=== PATIENT | female | born 1960 | race African-American/Black ===

== ENCOUNTER 2016-12-01 08:21 | Inpatient (IN) | payer SELFPAY ==
[2016-12-01] VITALS (7 sets, daily range): BP systolic 104–117; BP diastolic 60–70; PULSE 70
[~2016-12-01] VITALS: Ht 152.4 cm; Wt 54.8 kg
[~2016-12-01 08:21] MED LIST: ACET50TAOT PO; AMLO10TA PO; AMLO10TA2 PO; AMLO5TAB2 PO; ASPI325T PO; ATOR1TAB18 PO; CLON-412 PO; CLONI1TA PO; CLOP75TA2 PO; LIPI20TA PO; LOPR1TAB6 PO; LOSA100T37 PO; METO25TAB PO; PERC5TAB6 PO; TYLE325T5 PO
[2016-12-01] MEDS ORDERED: PANTOPRAZOLE 40MG INJ (PROTONIX) (C9113) As Ordered ONE (09:03)
[2016-12-01] MEDS ORDERED: ONDANSETRON 4MG/2ML VIAL (J2405) As Ordered ONE (09:04)
[2016-12-01 09:12] LABS: BASO % 0.5 % (0.0-1.0); EOS # 0.2 K/mm3 (0.0-0.50); EOS % 1.8 % (0.0-3.0); LARGE UNSTAINED CELL # 0.2 K/mm3 (0.0-0.4); LARGE UNSTAINED CELL % 1.5 % (0.0-4.0); LYMPH # 2.1 K/mm3 (1.5-4.5); LYMPH % 19.3 % (24.0-44.0); MEAN CORPUSCULAR HEMOGLOBIN 25.8 pg (27.0-33.0); MEAN CORPUSCULAR HGB CONC 31.3 g/dl (32.0-36.5); MEAN CORPUSCULAR VOLUME 82.3 fl (80.0-96.0); MONO # 0.4 K/mm3 (0.0-0.8); MONO % 3.5 % (0.0-5.0); NEUTROPHILS # 7.8 K/mm3 (1.8-7.7); NEUTROPHILS % 73.4 % (36.0-66.0); PLATELET COUNT, AUTOMATED 213 k/mm3 (150-450); RED CELL DISTRIBUTION WIDTH 13.3 % (11.5-14.5); WHITE BLOOD COUNT 10.7 K/mm3 (4.0-10.0)
[2016-12-01] MEDS ORDERED: LOSA100T37 PO (09:27)
[2016-12-01] MEDS ORDERED: ELIQ5TAB PO (09:27)
[2016-12-01 09:30] LABS: ALBUMIN 3.4 GM/DL (3.2-5.2); ALBUMIN/GLOBULIN RATIO 0.83 (1.00-1.93); ALKALINE PHOSPHATASE 111 U/L (45-117); ALT/SGPT 28 U/L (12-78); AMYLASE 99 U/L (25-115); ANION GAP 12 MEQ/L (8-16); AST/SGOT 28 U/L (15-37); BILIRUBIN,DIRECT < 0.1 MG/DL (0.0-0.2); BILIRUBIN,TOTAL 0.2 MG/DL (0.2-1.0); BLOOD UREA NITROGEN 63 MG/DL (7-18); CALCIUM LEVEL 8.6 MG/DL (8.5-10.1); CARBON DIOXIDE LEVEL 25 MEQ/L (21-32); CHLORIDE LEVEL 110 MEQ/L (98-107); CREATININE FOR GFR 1.94 MG/DL (0.55-1.02); GLOMERULAR FILTRATION RATE 34.6 (>51); GLUCOSE, FASTING 93 MG/DL (70-105); POTASSIUM SERUM 4.5 MEQ/L (3.5-5.1); SODIUM LEVEL 147 MEQ/L (136-145); TOTAL PROTEIN 7.5 GM/DL (6.4-8.2)
[2016-12-01 09:37] LABS: INR 1.41
[2016-12-01] MEDS ORDERED: SUCRALFATE 1 GM TAB As Ordered ONE (10:27)
[2016-12-01] MEDS: NS 1,000 ML IV SCH ×2 (11:19→14:51)
--- NOTE | 2016-12-01 12:20 | EDDOCDS ---
Physician Documentation [facility] Name: Jose Hamm Age: 56 yrs Sex: Female : 1960 Arrival Date: 12/01/2016 Time: 08:21 Bed 15 Private MD: Clive Casarez MD Disposition: 12/01/16 10:27 Hospitalization ordered by Miguel Wahl for Inpatient Admission. Preliminary diagnosis is Hematemesis. - Bed requested for PCU. - Status is Inpatient Admission. js13 - Condition is Stable. - Problem is new. - Symptoms have improved. Historical: - Allergies: no known allergies; - Home Meds: 1. atorvastatin 80 mg oral tab 1 tab once daily 2. losartan-hydrochlorothiazide 100-25 mg oral tab 1 tab once daily 3. Eliquis 5 mg oral tab 1 tab 2 times per day 4. metoprolol tartrate 25 mg Oral tab 2 times per day - PMHx: Hypercholesterolemia; Hypertension; kidney failure stage 3; Stroke; water on the brain; a fib; - PSHx: Cholecystectomy; - Social history: Smoking status: Patient states former smoker of tobacco. No barriers to communication noted, The patient speaks fluent Mosotho, Speaks appropriately for age. - Family history: Not pertinent. - : The pt / caregiver states he / she is on anticoagulants: Eliquis Home medication list is obtained from the patient. - Exposure Risk Screening:: None identified. 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 (152.40 cm) (R); 09:01 BP 120 / 81 (auto/); 13 09:01 Pulse 100 MON; Resp 16; Pulse Ox 100% on R/A; 13 09:16 BP 126 / 80 (auto/); 13 09:16 Pulse 90 MON; Resp 16; Pulse Ox 99% on R/A; 13 09:31 BP 117 / 79 (auto/); 13 09:31 Pulse 84 MON; Resp 16; Pulse Ox 100% on R/A; 13 09:46 BP 117 / 79 (auto/); js13 09:46 Pulse 72 MON; Resp 16; Pulse Ox 99% on R/A; js13 10:01 BP 130 / 87 (auto/); js13 10:01 Pulse 82 MON; Resp 16; Pulse Ox 99% on R/A; js13 10:16 BP 131 / 88 (auto/); js13 10:16 Pulse 76 MON; Resp 16; Pulse Ox 99% on R/A; js13 10:31 BP 124 / 90 (auto/); js13 10:31 Pulse 86 MON; Resp 16; Pulse Ox 98% on R/A; js13 10:46 BP 123 / 84 (auto/); js13 10:46 Pulse 78 MON; Resp 16; Pulse Ox 98% on R/A; js13 11:01 BP 126 / 85 (auto/); js13 11:01 Pulse 68 MON; Resp 16; Pulse Ox 99% on R/A; js13 11:16 BP 134 / 94 (auto/); js13 11:16 Pulse 78 MON; Resp 16; Pulse Ox 98% on R/A; js13 11:31 BP 120 / 87 (auto/); js13 11:31 Pulse 76 MON; Resp 16; Pulse Ox 99% on R/A; js13 11:46 BP 117 / 83 (auto/); js13 11:46 Pulse 84 MON; Resp 16; Temp 97.2(O); Pulse Ox 98% on R/A; js13 12:01 BP 119 / 81 (auto/); js13 12:01 Pulse 90 MON; Resp 16; Temp 97.2(O); Pulse Ox 99% on R/A; 13 08:29 Body Mass Index 21.48 (49.90 kg, 152.40 cm) srm MDM: 08:48 Undress patient appropriately for examination ordered. sd1 08:48 NS 0.9% 1000 ml IV at 250 mL/hr continuous ordered. sd1 08:49 pantoprazole 40 mg IV at bolus once ordered. sd1 08:49 Ondansetron 4 mg IVP once ordered. sd1 08:49 Type & Screen Ordered. EDMS 08:49 Amylase Ordered. EDMS 08:49 Basic Metabolic Profile Ordered. EDMS 08:49 CBC with Diff Ordered. EDMS 08:49 Lipase Ordered. EDMS 08:50 Liver Profile Ordered. EDMS 08:50 Prothrombin Time Profile\E\INR Ordered. EDMS 08:50 NOTHING BY MOUTH+DIET ordered. EDMS 08:50 ECG WITH READING ER PHYS+CARDIAG ordered. EDMS 08:52 pantoprazole 8 mg/hr IV at 10 mL/hr continuous over 72 hrs; 40mg (10mL): withdraw 10mL sd1 from 50mL bag of NS then add protonix ordered. 08:53 BED REQUEST+ADM ordered. EDMS 09:00 Financial registration complete. lg 09:05 [facility] Payment Agreement was scanned into [employer] and attached to record. lg 09:29 CBC with Diff Reviewed. sd1 09:41 Basic Metabolic Profile Reviewed. sd1 09:41 Liver Profile Reviewed. sd1 09:41 Prothrombin Time Profile\E\INR Reviewed. sd1 09:41 Amylase Reviewed. sd1 09:41 Lipase Reviewed. sd1 09:55 Type & Screen Reviewed. sd1 10:09 Sucralfate 1 grams PO once ordered. sd1 11:25 Admission / Observation Status ordered. EDMS 11:25 COMPLETE BLOOD COUNT Ordered. EDMS 11:26 COMPLETE BLOOD COUNT Ordered. EDMS 11:26 BASIC METABOLIC PROFILE Ordered. EDMS 11:53 NPO DIET ordered. EDMS Administered Medications: 09:20 Drug: NS 0.9% 1000 ml [sodium chloride 0.9 % intravenous solution] Route: IV; Rate: 250 js13 mL/hr; Site: left antecubital; 11:46 Follow up: Rate change 125 mL/hr; Rate change per admission orders. js13 12:07 Follow up: IV Status: Infusion continued upon admit js13 09:20 Drug: Ondansetron 4 mg [ondansetron HCl 2 mg/mL intravenous solution (2 mL)] Route: js13 IVP; Site: left antecubital; 09:23 Drug: pantoprazole 8 mg/hr [pantoprazole 40 mg intravenous solution] Route: IV; Rate: js13 10 mL/hr; Infused Over: 72 hrs; Site: left antecubital; 12:07 Follow up: IV Status: Infusion continued upon admit js13 09:24 Drug: pantoprazole 40 mg [pantoprazole 40 mg intravenous solution] Route: IV; Rate: js13 bolus; Site: left antecubital; 10:20 Drug: Sucralfate 1 grams [sucralfate 1 gram tablet (1 tabs)] Route: PO; js13 Signatures: Dispatcher [employer] EDMS Melodie Schwab MD MD sd1 Lamar Bowers, SHER RN Nestor Mendoza, Mars Reg lg Olya Lewis RN RN js13 Terry Mahmood RN RN sa The chart was reviewed and I authenticate all verbal orders and agree with the evaluation and treatment provided.Corrections: (The following items were deleted from the chart) 09:01 08:48 Misc. Nursing Order ordered. sd1 js13 10:42 08:48 Orthostatic VS ordered. md1 js13 11:29 11:25 TYPE & SCREEN ordered. EDMS EDMS 11:53 11:25 NPO DIET ordered. EDMS EDMS Attachments: 09:05 [facility] Payment Agreement lg MTDD
--- NOTE | 2016-12-01 12:20 | EDDOCDS ---
Nurse's Notes [facility] Name: Jose Hamm Age: 56 yrs Sex: Female : 1960 Arrival Date: 12/01/2016 Time: 08:21 Bed 15 Private MD: Clive Casarez MD Diagnosis: Hematemesis Presentation: 12/01 08:25 Presenting complaint: Patient states: started vomiting at 0345. reddish black in color- srm daughter states it looked like jello. no ABD pain or diarrhea. after vomiting she felt tired but " relieved". vomiting about 5-6 times this am. Adult Sepsis Screening: The patient does not have new or worsening altered mentation. Patient's respiratory rate is less than 22. Systolic blood pressure is greater than 100. Patient has a qSOFA score of 0- Negative Sepsis Screen. Transition of care: patient was not received from another setting of care. 08:25 Acuity: ERIC Level 3 srm 08:25 Method Of Arrival: Walkin/Carried/Asstd [facility] 08:29 Suicide/Homicide risk assessment- the patient denies having any suicidal and/or srm homicidal ideations and does not present with any other emotional, behavioral or mental health complaints. Status: The patient is a dependent. Triage Assessment: 08:29 General: Appears in no apparent distress, Behavior is appropriate for age, cooperative. srm Pain: Denies pain. HIV screening NA for this visit Offered previously. 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 atorvastatin 80 mg oral tab 1 tab once daily 2. losartan-hydrochlorothiazide 100-25 mg oral tab 1 tab once daily 3. Eliquis 5 mg oral tab 1 tab 2 times per day 4. metoprolol tartrate 25 mg Oral tab 2 times per day - PMHx: Hypercholesterolemia; Hypertension; kidney failure stage 3; Stroke; water on the brain; a fib; - PSHx: Cholecystectomy; - Social history: Smoking status: Patient states former smoker of tobacco. No barriers to communication noted, The patient speaks fluent Rwandan, Speaks appropriately for age. - Family history: Not pertinent. - : The pt / caregiver states he / she is on anticoagulants: Eliquis Home medication list is obtained from the patient. - Exposure Risk Screening:: None identified. Screenin:43 Screening information is obtained from the patient. Fall risk: No risks identified. js13 Assistance ADL's: requires no assistance with activities of daily living. Abuse/DV Screen: The patient / caregiver reports he/she is: not in a situation that causes fear, pain or injury. Nutritional screening: No deficits noted. Advance Directives: There is no active DNR order. home support is adequate. Assessment: 09:24 General: Appears in no apparent distress, Behavior is appropriate for age, cooperative. js13 Pain: Denies pain. Neurological: Level of Consciousness is awake, alert. Cardiovascular: Rhythm is sinus rhythm Chest pain is denied. Respiratory: Airway is patent Respiratory effort is even, unlabored, Respiratory pattern is regular, symmetrical, Breath sounds are clear. GI: Abdomen is non- distended Bowel sounds present X 4 quads. Abd is soft and non tender Reports vomiting. Derm: Skin is normal. 10:23 General: Appears in no apparent distress, Behavior is appropriate for age, cooperative. js13 Pain: Denies pain. Neurological: Level of Consciousness is awake, alert. Cardiovascular: Rhythm is sinus rhythm Chest pain is denied. Respiratory: Airway is patent Respiratory effort is even, unlabored, Respiratory pattern is regular, symmetrical. GI: Abdomen is non- distended Bowel sounds present X 4 quads. Abd is soft and non tender X 4 quads. Derm: Skin is normal. 11:27 Adult Sepsis Screening: The patient does not have new or worsening altered mentation. js13 Patient's respiratory rate is less than 22. Systolic blood pressure is greater than 100. Patient has a qSOFA score of 0- Negative Sepsis Screen. General: Appears in no apparent distress, Behavior is appropriate for age, cooperative. Pain: Denies pain. Neurological: Level of Consciousness is awake, alert. Cardiovascular: Rhythm is sinus rhythm Chest pain is denied. Respiratory: Airway is patent Respiratory effort is even, unlabored, Respiratory pattern is regular, symmetrical. GI: Abdomen is non- distended Bowel sounds present X 4 quads. Abd is soft and non tender. Derm: Skin is normal. 12:06 General: Appears in no apparent distress, comfortable, Behavior is appropriate for age, js13 cooperative. Pain: Denies pain. Neurological: Level of Consciousness is awake, alert. Cardiovascular: Rhythm is sinus rhythm Chest pain is denied. Respiratory: Airway is patent Respiratory effort is even, unlabored, Respiratory pattern is regular, symmetrical. GI: Abdomen is non- distended Bowel sounds present X 4 quads. Abd is soft and non tender. Derm: Skin is normal. Vital Signs: 08:29 BP 122 / 55; Pulse 76; Resp 18; Temp 96(O); Pulse Ox 98% on R/A; Weight 49.9 kg (R); srm Height 5 ft. (152.40 cm) (R); 09:01 BP 120 / 81 (auto/); js13 09:01 Pulse 100 MON; Resp 16; Pulse Ox 100% on R/A; js13 09:16 BP 126 / 80 (auto/); js13 09:16 Pulse 90 MON; Resp 16; Pulse Ox 99% on R/A; js13 09:31 BP 117 / 79 (auto/); js13 09:31 Pulse 84 MON; Resp 16; Pulse Ox 100% on R/A; js13 09:46 BP 117 / 79 (auto/); js13 09:46 Pulse 72 MON; Resp 16; Pulse Ox 99% on R/A; js13 10:01 BP 130 / 87 (auto/); js13 10:01 Pulse 82 MON; Resp 16; Pulse Ox 99% on R/A; js13 10:16 BP 131 / 88 (auto/); js13 10:16 Pulse 76 MON; Resp 16; Pulse Ox 99% on R/A; js13 10:31 BP 124 / 90 (auto/); js13 10:31 Pulse 86 MON; Resp 16; Pulse Ox 98% on R/A; js13 10:46 BP 123 / 84 (auto/); js13 10:46 Pulse 78 MON; Resp 16; Pulse Ox 98% on R/A; js13 11:01 BP 126 / 85 (auto/); js13 11:01 Pulse 68 MON; Resp 16; Pulse Ox 99% on R/A; js13 11:16 BP 134 / 94 (auto/); js13 11:16 Pulse 78 MON; Resp 16; Pulse Ox 98% on R/A; js13 11:31 BP 120 / 87 (auto/); js13 11:31 Pulse 76 MON; Resp 16; Pulse Ox 99% on R/A; js13 11:46 BP 117 / 83 (auto/); js13 11:46 Pulse 84 MON; Resp 16; Temp 97.2(O); Pulse Ox 98% on R/A; js13 12:01 BP 119 / 81 (auto/); js13 12:01 Pulse 90 MON; Resp 16; Temp 97.2(O); Pulse Ox 99% on R/A; js13 08:29 Body Mass Index 21.48 (49.90 kg, 152.40 cm) [facility] Vitals: 08:29 Log In Time: December 01, 2016 at 08:17. [facility] ED Course: 08:23 Patient visited by Genie Lake. mm15 08:23 Clive Casarez is Private Physician. mm15 08:23 Patient moved to Waiting mm15 08:27 Triage Initiated [facility] 08:32 Patient moved to 15 [facility] 08:37 Melodie Schwab MD is Attending Physician. sd1 08:41 Patient visited by Melodie Schwab MD. sd1 08:43 The patient / caregiver is instructed regarding the plan of care and ED course. js13 09:01 Inserted saline lock: 18 gauge in left antecubital area and blood collected. The js13 patient tolerated the procedure well. No procedures done that require assistance. Labs drawn. (by ED staff). Sent per order to lab. 09:02 Amylase Sent. js13 09:02 Basic Metabolic Profile Sent. js13 09:02 CBC with Diff Sent. js13 09:02 Lipase Sent. js13 09:02 Liver Profile Sent. js13 09:02 Prothrombin Time Profile\\E\\INR Sent. js13 09:03 Patient visited by Rosy Swift. nb2 09:03 EKG done. (by ED staff). Reviewed by Melodie Schwab MD. nb2 09:05 [facility] Payment Agreement was scanned into [employer] and attached to record. lg 09:25 Patient visited by Olya Lewis RN. js13 10:25 Patient visited by Olya Lewis RN. js13 10:27 Miguel Wahl is Hospitalizing Provider. sd1 11:28 Patient visited by Olya Lewis RN. js13 Administered Medications: 09:20 Drug: NS 0.9% 1000 ml [sodium chloride 0.9 % intravenous solution] Route: IV; Rate: 250 js13 mL/hr; Site: left antecubital; 11:46 Follow up: Rate change 125 mL/hr; Rate change per admission orders. 12:07 Follow up: IV Status: Infusion continued upon admit 09:20 Drug: Ondansetron 4 mg [ondansetron HCl 2 mg/mL intravenous solution (2 mL)] Route: js13 IVP; Site: left antecubital; 09:23 Drug: pantoprazole 8 mg/hr [pantoprazole 40 mg intravenous solution] Route: IV; Rate: js13 10 mL/hr; Infused Over: 72 hrs; Site: left antecubital; 12:07 Follow up: IV Status: Infusion continued upon admit 09:24 Drug: pantoprazole 40 mg [pantoprazole 40 mg intravenous solution] Route: IV; Rate: js13 bolus; Site: left antecubital; 10:20 Drug: Sucralfate 1 grams [sucralfate 1 gram tablet (1 tabs)] Route: PO; Intake: Order Results: Lab Order: Amylase; SPEC'M 12/01/16 09:00 Test: AMYLASE; Value: 99; Range: 25-115; Units: U/L; Status: F Lab Order: Basic Metabolic Profile; SPEC'M 12/01/16 09:00 Test: GLUCOSE, FASTING; Value: 93; Range: 70-105; Units: MG/DL; Status: F Test: BLOOD UREA NITROGEN; Value: 63; Range: 7-18; Abnormal: Above high normal; Units: MG/DL; Status: F Test: CREATININE FOR GFR; Value: 1.94; Range: 0.55-1.02; Abnormal: Above high normal; Units: MG/DL; Status: F Test: GLOMERULAR FILTRATION RATE; Value: 34.6; Range: >51; Abnormal: Below low normal; Status: F Test: SODIUM LEVEL; Value: 147; Range: 136-145; Abnormal: Above high normal; Units: MEQ/L; Status: F Test: POTASSIUM SERUM; Value: 4.5; Range: 3.5-5.1; Units: MEQ/L; Status: F Test: CHLORIDE LEVEL; Value: 110; Range: 98-107; Abnormal: Above high normal; Units: MEQ/L; Status: F Test: CARBON DIOXIDE LEVEL; Value: 25; Range: 21-32; Units: MEQ/L; Status: F Test: ANION GAP; Value: 12; Range: 8-16; Units: MEQ/L; Status: F Test: CALCIUM LEVEL; Value: 8.6; Range: 8.5-10.1; Units: MG/DL; Status: F Test Note: ; Units are mL/min/1.73 m2 Chronic Kidney Disease Staging per NKF: Stage I & II GFR >=60 Normal to Mildly Decreased Stage III GFR 30-59 Moderately Decreased Stage IV GFR 15-29 Severely Decreased Stage V GFR <15 Very Little GFR Left ESRD GFR <15 on AUTOMOTIVE SALESPERSON Lab Order: CBC with Diff; SPEC'M 12/01/16 09:00 Test: WHITE BLOOD COUNT; Value: 10.7; Range: 4.0-10.0; Abnormal: Above high normal; Units: K/mm3; Status: F Test: RED BLOOD COUNT; Value: 3.76; Range: 4.00-5.40; Abnormal: Below low normal; Units: M/mm3; Status: F Test: HEMOGLOBIN; Value: 9.7; Range: 12.0-16.0; Abnormal: Below low normal; Units: g/dl; Status: F Test: HEMATOCRIT; Value: 31.0; Range: 36.0-47.0; Abnormal: Below low normal; Units: %; Status: F Test: MEAN CORPUSCULAR VOLUME; Value: 82.3; Range: 80.0-96.0; Units: fl; Status: F Test: MEAN CORPUSCULAR HEMOGLOBIN; Value: 25.8; Range: 27.0-33.0; Abnormal: Below low normal; Units: pg; Status: F Test: MEAN CORPUSCULAR HGB CONC; Value: 31.3; Range: 32.0-36.5; Abnormal: Below low normal; Units: g/dl; Status: F Test: RED CELL DISTRIBUTION WIDTH; Value: 13.3; Range: 11.5-14.5; Units: %; Status: F Test: PLATELET COUNT, AUTOMATED; Value: 213; Range: 150-450; Units: k/mm3; Status: F Test: NEUTROPHILS %; Value: 73.4; Range: 36.0-66.0; Abnormal: Above high normal; Units: %; Status: F Test: LYMPH %; Value: 19.3; Range: 24.0-44.0; Abnormal: Below low normal; Units: %; Status: F Test: MONO %; Value: 3.5; Range: 0.0-5.0; Units: %; Status: F Test: EOS %; Value: 1.8; Range: 0.0-3.0; Units: %; Status: F Test: BASO %; Value: 0.5; Range: 0.0-1.0; Units: %; Status: F Test: LARGE UNSTAINED CELL %; Value: 1.5; Range: 0.0-4.0; Units: %; Status: F Test: NEUTROPHILS #; Value: 7.8; Range: 1.8-7.7; Abnormal: Above high normal; Units: K/mm3; Status: F Test: LYMPH #; Value: 2.1; Range: 1.5-4.5; Units: K/mm3; Status: F Test: MONO #; Value: 0.4; Range: 0.0-0.8; Units: K/mm3; Status: F Test: EOS #; Value: 0.2; Range: 0.0-0.50; Units: K/mm3; Status: F Test: BASO #; Value: 0.0; Range: 0.0-0.2; Units: K/mm3; Status: F Test: LARGE UNSTAINED CELL #; Value: 0.2; Range: 0.0-0.4; Units: K/mm3; Status: F Lab Order: Lipase; SPEC'M 12/01/16 09:00 Test: LIPASE; Value: 249; Range: 73-393; Units: U/L; Status: F Lab Order: Liver Profile; SPEC'M 12/01/16 09:00 Test: AST/SGOT; Value: 28; Range: 15-37; Units: U/L; Status: F Test: ALT/SGPT; Value: 28; Range: 12-78; Units: U/L; Status: F Test: ALKALINE PHOSPHATASE; Value: 111; Range: 45-117; Units: U/L; Status: F Test: BILIRUBIN,TOTAL; Value: 0.2; Range: 0.2-1.0; Units: MG/DL; Status: F Test: BILIRUBIN,DIRECT; Value: < 0.1; Range: 0.0-0.2; Units: MG/DL; Status: F Test: TOTAL PROTEIN; Value: 7.5; Range: 6.4-8.2; Units: GM/DL; Status: F Test: ALBUMIN; Value: 3.4; Range: 3.2-5.2; Units: GM/DL; Status: F Test: ALBUMIN/GLOBULIN RATIO; Value: 0.83; Range: 1.00-1.93; Abnormal: Below low normal; Status: F Lab Order: Prothrombin Time Profile\\E\\INR; SPEC'M 12/01/16 09:00 Test: PROTHROMBIN TIME; Value: 17.4; Range: 12.3-14.5; Abnormal: Above high normal; Units: SECONDS; Status: F Test: INR; Value: 1.41; Status: F Test Note: ; THERAPUTIC HUMAN INR VALUES INDICATIONS NORMAL RANGES PROPHYLAXIS/TREATMENT OF: VENOUS THROMBOSIS 2.0-3.0 PULMONARY EMBOLISM 2.0-3.0 PREVENTION OF SYSTEMIC EMBOLISM FROM: TISSUE HEART VALVES 2.0-3.0 ACUTE MYOCARDIAL INFARCTION 2.0-3.0 VALVULAR HEART DISEASE 2.0-3.0 ATRIAL FIBRILLATION 2.0-3.0 MECHANICAL VALVES(HIGH RISK) 2.5-3.5 RECURRENT MYOCARDIAL INFARCTION 2.5-3.5 Lab Order: Type & Screen; SPEC'M 12/01/16 09:00 Test: BLOOD TYPE; Value: O POS; Status: F Test: AB SCREEN (INDIRECT CHERI)GEL; Value: NEGATIVE; Status: F Outcome: 10:27 Decision to Hospitalize by Provider. sd1 11:46 Discharge Assessment: Patient awake, alert and oriented x 3. No cognitive and/or js13 functional deficits noted. Patient verbalized understanding of disposition instructions. patient administered narcotics - no. Condition: stable. No special radiology studies were completed. Admission hand-off: Report Faxed. Property :Personal belongings accompany Pt. 12:05 The following High Risk Discharge criteria are identified: None. Admitted to PCU js13 accompanied by nurse, accompanied by tech, via stretcher, on monitor, with chart. 12:19 Patient left the ED. js13 Signatures: Melodie Schwab MD MD sd1 Lamar Bowers, RN RN srm Nestor Lynn, Mars Reg lg Olya LewisRN RN js13 Genie Lake mm15 Rosy Swift nb2 Corrections: (The following items were deleted from the chart) 11:29 11:26 TYPE & SCREEN sent. js13 EDMS MTDD
[2016-12-01] MEDS: PANTOPRAZOLE SODIUM 40 MG in D5W MINI-BAG PLUS 50 ML IV SCH ×3 (12:39→20:35)
--- NOTE | 2016-12-01 13:27 | CR ---
DATE OF CONSULTATION: 12/01/2016 CHIEF COMPLAINT: Hematemesis. HISTORY OF PRESENT ILLNESS: The patient is 56-year-old female who presents with four episodes of hematemesis that started a little after 03:30 this morning. At first, it was bright red blood. By the fourth episode, it was more of clots that she was vomiting. She has not had any problems with bowel movements. No blood in her stool. No abdominal pains. No epigastric pains. No recent heartburn or acid reflux. She does eat a lot of spicy and acidic foods with tomato sauces. Limited caffeine. Denies any tobacco, alcohol or drug use. Has never had any previous upper endoscopy or history of stomach ulcers. She is currently on Eliquis for history of atrial fibrillation. She has also had a stroke in the past. No history of heart problems. No coronary stenting. PAST MEDICAL HISTORY: 1. Hyperlipidemia. 2. Hypertension. 4. Chronic kidney disease stage III. 4. history of stroke. 5. Atrial fibrillation. PAST SURGICAL HISTORY: 1. Cholecystectomy. 2. Colonoscopy 2 months ago. SOCIAL HISTORY: Denies any drug, alcohol or tobacco abuse. FAMILY HISTORY: Noncontributory. REVIEW OF SYSTEMS: Per positives and negatives as stated in history of present illness (HPI). PHYSICAL EXAMINATION: GENERAL: Alert and oriented times three. No acute distress. VITALS: Blood pressure 117/79, pulse 84, respirations 16, pulse oximetry 100% on room air. HEENT: Pupils equal round and react to light and accommodation. HEART: S1, S2, regular rate and rhythm. LUNGS: Clear to auscultation bilaterally. ABDOMEN: Soft, nontender, nondistended. EXTREMITIES: No clubbing, cyanosis or edema. LABORATORY DATA: Hemoglobin currently 9.7, was most recently 10.2 one month ago and 9.8 a month ago. White count 10.7. Platelets 213. INR 1.41. Potassium 4.5. Creatinine 1.94. Lipase 249. ASSESSMENT/PLAN: The patient is a 56-year-old female with hematemesis likely secondary to gastritis versus peptic ulcer. Recommendation is to proceed with Prilosec and Carafate for now. If she has another episode of hematemesis or her hemoglobin drops below 8, I will consider endoscopy during the stay. Otherwise, will plan on seeing me as an outpatient and plan for outpatient endoscopy in a month after having treatment with Carafate and a proton pump inhibitor (PPI). No indication for repeat colonoscopy at this time since she had a normal one 2 months ago. I thank you for the consult. I will continue to follow the patient in the hospital while she is here.
[2016-12-01 15:02] LABS: MEAN CORPUSCULAR HEMOGLOBIN 26.2 pg (27.0-33.0); MEAN CORPUSCULAR HGB CONC 32.1 g/dl (32.0-36.5); MEAN CORPUSCULAR VOLUME 81.7 fl (80.0-96.0); RED CELL DISTRIBUTION WIDTH 13.3 % (11.5-14.5); WHITE BLOOD COUNT 11.1 K/mm3 (4.0-10.0)
[2016-12-01 15:21] LABS: CREATININE FOR GFR 1.81 MG/DL (0.55-1.02); GLOMERULAR FILTRATION RATE 37.4 (>51)
[2016-12-01] MEDS: ONDANSETRON 4MG/2ML VIAL (J2405) IV SCH ×2 (15:32→20:34)
[2016-12-01] MEDS: SUCRALFATE 1 GM TAB PO SCH ×2 (15:32→20:37)
--- NOTE | 2016-12-01 19:28 | ECGEPIP ---
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
[2016-12-01 20:53] LABS: MEAN CORPUSCULAR HEMOGLOBIN 25.7 pg (27.0-33.0); MEAN CORPUSCULAR HGB CONC 32.5 g/dl (32.0-36.5); RED CELL DISTRIBUTION WIDTH 14.4 % (11.5-14.5)
--- NOTE | 2016-12-01 21:44 | HPE ---
DATE OF ADMISSION: 12/01/2016 PRIMARY CARE PROVIDER: Ileana Escobar. CHIEF COMPLAINT: Hematemesis. HISTORY OF PRESENT ILLNESS: Ms. Hamm is a 56-year-old female with past medical history of multiple cerebrovascular accident (CVA), recently diagnosed in 10/2016, at that time was then sent home with aspirin and Plavix. Because of her multiple strokes, there was concern for an embolic event, which was thought to be possibly secondary to underlying atrial fibrillation that was not captured while inpatient. Upon discharge, she followed up with her primary care doctor, and she had aspirin and Plavix discontinued, and was started on Eliquis on 11/09/2016. Earlier this morning, around 3:45, she woke up feeling fullness to her throat, then had projectile vomiting of dark red blood. Patient did not make it to the toilet in time and actually had significant amount of blood on the floor. Had a total of five episodes in total, associated with feelings of dizziness, lightheadedness, palpitations, as she got up from the toilet. Denies any chest pain, shortness of breath, fever, chills, melena, hematochezia, syncopal episodes. Reports compliance with all her medications. No prior similar episodes. In the emergency room (ER), was started on Zofran 4 mg times 1 liter of fluid, pantoprazole 40 bolus and trip, and Carafate 1 gram. PAST MEDICAL HISTORY: 1. Multiple strokes, 10/2016. 2. Hypertension. 3. Chronic kidney disease stage 3. 4. Questionable paroxysmal atrial fibrillation. She was recently started on Lopressor mg by her primary care provider (PCP). PAST SURGICAL HISTORY: 1. Cholecystectomy. 2. 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 ALLERGIES: No known drug allergies. HOME MEDICATIONS: - Eliquis 5 mg by mouth twice a day - Lipitor 80 mg at bedtime - losartan/hydrochlorothiazide 100/25 mg by mouth daily - Lopressor 25 mg by mouth twice a day FAMILY HISTORY: There is reported lung cancer and breast cancer in the family, but unknown family member. SOCIAL HISTORY: Patient started smoking at the age of 14, a pack a day. Quit four weeks ago. No alcohol or drug use. No recent travel. Currently lives at home. No pets. 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 REVIEW OF SYSTEMS: CONSTITUTIONAL: Denies fevers, chills, rigors, weight changes. HEENT: Positive for lightheadedness, as mentioned above. Denies dizziness, blurry vision, difficulty with speech and swallow. CARDIOVASCULAR: Denies chest pain, paroxysmal nocturnal dyspnea, pillow orthopnea, lower extremity edema. Palpitations this morning when she was vomiting, but no chest pain, shortness of breath, leg swelling. PULMONARY: Denies shortness of breath, productive cough, hemoptysis. GASTROINTESTINAL: As above. GENITOURINARY: No dysuria, frequency or hematuria. MUSCULOSKELETAL: No bone, muscle, joint pain. NEUROLOGICAL: No paralysis, paresthesia, headaches. ENDOCRINE: Negative for diabetes, or thyroid disease. LYMPHATICS: No lumps, bumps, or swelling anywhere in neck, axilla, or groin. HEMATOLOGY: Positive for bleeding, as above. PHYSICAL EXAMINATION: VITAL SIGNS: Blood pressure 122/55, heart rate 76, respiration rate 18, temperature 96, pulse oximetry 98% on room air, body mass index (BMI) 21%. GENERAL: The patient was reportedly symptomatic with positional change and could not have orthostatics performed. Lying in bed, comfortable, no acute distress. AAOX3, pleasant, cooperative. HEENT: Normocephalic, atraumatic, moist oral mucosa. Edentulous. NECK: Supple, trachea midline, no JVD. CHEST: Symmetric chest rise, no accessory muscle use. LUNGS: Clear without wheezing, rales, rhonchi. CARDIAC: RRR, no murmurs appreciated, normal S1, S2. ABDOMEN: Soft, NT, ND, bowel sounds present, no guarding, no rebound. RECTAL: Deferred, patient already had her rectum exam and was found to be hemoccult positive. EXTREMITY: No pedal edema, pedal pulses present bilaterally. LABORATORY DATA: WBC 10.7, hemoglobin 9.7, hematocrit 31.0, platelets 123. Baseline hemoglobin is 9-10. Sodium 147, potassium 4.5, chloride 110, carbon dioxide 25, BUN 63, creatinine 1.94, baseline is 1.7. PT 17.4. INR 1.4. IMPRESSION AND PLAN: Ms. Hamm is a 56-year-old female with recently diagnosed stroke, previously on aspirin and Plavix, was then later switched to Eliquis, presented with hematemesis. 1. Upper gastrointestinal (GI) bleed. Possible causes include gastric ulcer, medication induced gastritis, atrioventricular (AV) malformation versus other. The patient herself denied any history of gastric ulcers and never had an esophagogastroduodenoscopy (EGD). Have officially consulted Dr. Burnett. Case discussed with him. At this time, it is recommended to continue to monitor hemoglobin and hematocrit (H and H). If she is able to tolerate, we will consider switching her to Prilosec by mouth tomorrow. Keep nothing by mouth for now. If she continues to be stable, then the recommendation is to have outpatient EGD in one month. She will continue with Carafate and proton pump inhibitor (PPI) twice a day. Continue IV fluid hydration. Vivianefran. Greatly appreciate Dr. Burnett's assistance. 2. Hypertension. Patient was actually symptomatic for orthostatic hypotension, and because of this will hold off on her home medications at this time. 3. Acute kidney injury (PRANAY) on chronic kidney disease (CKD). Baseline creatinine is 1.7. Hold home angiotensin receptor lavern (ARB) and diuretic. 4. Prior history of cerebrovascular accident (CVA). Continue holding her medications, including Lipitor. 5. Hyperlipidemia. Hold her Lipitor for now. 6. Deep venous thrombosis (DVT) prophylaxis. Sequential compression devices (SCDs), thromboembolitic deterrents (TEDs). No pharmacological intervention secondary to GI bleed presentation. My preceptor for this patient encounter was Dr. Miguel Wahl. The preceptor was physically present in the building during the encounter and was fully available as needed. All aspects of the patient interview, examination, medical decision-making process, and medical care plan development were reviewed and approved by the preceptor. The preceptor is aware and concurs with the plan as stated in the body of this note and will attest to such by his/her co-signature. cc: Ileana Escobar
[2016-12-01] MEDS ORDERED: diphenhydrAMINE 25 MG CAP PO ONE (23:00)
[2016-12-01] MEDS ORDERED: ACETAMINOPHEN TAB 650MG DOSE (2X325MG) PO ONE (23:00)
[2016-12-02] VITALS (7 sets, daily range): BP systolic 109–163; BP diastolic 62–79; PULSE 65–74
[2016-12-02] MEDS: PANTOPRAZOLE SODIUM 40 MG in D5W MINI-BAG PLUS 50 ML IV SCH ×2 (01:37→09:02)
[2016-12-02] MEDS: SUCRALFATE 1 GM TAB PO SCH ×4 (03:29→22:35)
[2016-12-02] MEDS: NS 1,000 ML IV SCH (03:30)
[2016-12-02] MEDS: ONDANSETRON 4MG/2ML VIAL (J2405) IV SCH ×4 (03:30→22:35)
[2016-12-02 07:20] LABS: MEAN CORPUSCULAR HGB CONC 32.6 g/dl (32.0-36.5); MEAN CORPUSCULAR VOLUME 82.9 fl (80.0-96.0); RED CELL DISTRIBUTION WIDTH 14.9 % (11.5-14.5)
[2016-12-02 07:28] LABS: CALCIUM LEVEL 7.7 MG/DL (8.5-10.1); GLOMERULAR FILTRATION RATE 33.4 (>51); POTASSIUM SERUM 4.4 MEQ/L (3.5-5.1)
[2016-12-02] MEDS: OMEPRAZOLE 20 MG CAP PO SCH ×2 (09:00→22:35)
[2016-12-02] MEDS: D5W 1,000 ML IV SCH ×2 (13:33→22:33)
[2016-12-02 15:48] LABS: MEAN CORPUSCULAR HEMOGLOBIN 27.3 pg (27.0-33.0); MEAN CORPUSCULAR HGB CONC 33.1 g/dl (32.0-36.5); MEAN CORPUSCULAR VOLUME 82.3 fl (80.0-96.0); RED CELL DISTRIBUTION WIDTH 14.8 % (11.5-14.5); WHITE BLOOD COUNT 9.1 K/mm3 (4.0-10.0)
[2016-12-02 21:00] LABS: MEAN CORPUSCULAR HEMOGLOBIN 27.2 pg (27.0-33.0); MEAN CORPUSCULAR VOLUME 82.6 fl (80.0-96.0); RED CELL DISTRIBUTION WIDTH 13.9 % (11.5-14.5); WHITE BLOOD COUNT 8.8 K/mm3 (4.0-10.0)
[2016-12-02] MEDS ORDERED: ATORVASTATIN 20 MG TAB PO SCH (21:00)
[2016-12-03 03:46] VITALS: BP 140/77
[2016-12-03] MEDS: ONDANSETRON 4MG/2ML VIAL (J2405) IV SCH ×2 (03:46→09:00)
[2016-12-03] MEDS: SUCRALFATE 1 GM TAB PO SCH ×2 (03:46→09:22)
[2016-12-03 05:34] LABS: MEAN CORPUSCULAR HEMOGLOBIN 27.3 pg (27.0-33.0); MEAN CORPUSCULAR HGB CONC 33.8 g/dl (32.0-36.5); MEAN CORPUSCULAR VOLUME 80.8 fl (80.0-96.0); RED CELL DISTRIBUTION WIDTH 14.9 % (11.5-14.5); WHITE BLOOD COUNT 8.5 K/mm3 (4.0-10.0)
[2016-12-03 05:45] LABS: CALCIUM LEVEL 8.1 MG/DL (8.5-10.1); CREATININE FOR GFR 1.97 MG/DL (0.55-1.02); POTASSIUM SERUM 3.7 MEQ/L (3.5-5.1)
[2016-12-03 07:30] VITALS: BP 145/79
[2016-12-03] MEDS: OMEPRAZOLE 20 MG CAP PO SCH (09:22)
[2016-12-03] MEDS ORDERED: ECOT81TA5 PO (10:34)
[2016-12-03] MEDS ORDERED: SUCR1TA PO (10:34)
[2016-12-03] MEDS ORDERED: OMEP20CA3 PO (10:34)
[2016-12-03] MEDS ORDERED: LOSA25TA8 PO (11:05)
--- NOTE | 2016-12-03 12:28 | DS.PDOC ---
Discharge Summary General Date of Admission Dec 01, 2016 at 11:19 Date of Discharge 12/03/16 Attending Physician: MARIO LO MD Specialist/Consultants Involve: MANUELA BURNETT DO Discharge Summary PROCEDURES PERFORMED DURING STAY: None. COMPLICATIONS/CHIEF COMPLAINT: Hematemesis ADMISSION/DISCHARGE DIAGNOSES: 1. Upper GI bleed on Eliquis 2. H/o Multiple CVAs 3. HTN 4. CKD stage 3-4 5. HLD HISTORY OF PRESENT ILLNESS/HOSPITAL COURSE: This is a 56-year-old female past medical history of multiple CVAs and a recent CVA in October 2016. Patient was placed on aspirin and Plavix and discharged home. Patient followed-up with her primary care physician who had started her on Eliquis for a possible diagnosis of atrial fibrillation given the distribution of her strokes, per pt. Patient presents to the hospital complaining of 5 episodes of hematemesis that started at 3:00 in the morning. Patient states that she started having symptoms consistent with orthostatic hypotension when she stands up patient was started on fluids for hydration and had a drop in hemoglobin from 9.7-7.1. Patient was given 2 units of PRBC and remained hemodynamically stable. Dr. Burnett has evaluated the patient's and we will be doing an endoscopy one month after being discharged. Dr. Burnett is okay with aspirin being started at this time. In regards to her eliquis, I have spoken to Dr. Delacruz who recommended that the patient be on aspirin only. She will need to be followed up with Dr. Burnett for her endoscopy and at that time it will need to be decided by her PCP and neurologist whether the patient should be placed back on eliquis. I have discussed this with the patient, and she is agreeable to take an aspirin daily. I have also explained that this may also increased risk of bleeding and she will return to the hospital if she does have any additional episodes of bleeding. DISCHARGE MEDICATIONS: Please see below. ALLERGIES: Please see below. PHYSICAL EXAMINATION ON DISCHARGE: Vitals: (see below) General: No acute distress, laying comfortably in bed. HEENT: Moist mucous membranes. Neck: No JVD or lymphadenopathy Cardiac: RRR, No murmurs Pulm: Clear to auscultation b/l. No wheezing, rhonchi Abd: NT/ND + BS Ext: No edema or cyanosis Residual left sided weakness. LABORATORY DATA: Please see below. IMAGING: VTE Prophylaxis ordered?: Yes DISCHARGE CONDITION: Stable DISPOSITION: Home ACTIVITY: As tolerated DIET: Low-sodium, renal DISCHARGE PLAN AND INSTRUCTIONS: 1. . 2. . 3. . TIME SPENT ON DISCHARGE: Greater than 30 minutes. Vital Signs/I&Os Vital Signs Date Time Temp Pulse Resp B/P Pulse Ox O2 Delivery O2 Flow Rate FiO2 12/03/16 08:00 Room Air 12/03/16 07:30 96.9 69 18 145/79 94 I&O- Last 24 Hours up to 6 AM 12/03/16 05:59 Intake Total 4730 ml Output Total 5700 ml Balance -970 ml Laboratory Data Labs 24H Laboratory Tests 2 12/03/16 05:00: Anion Gap 8, Blood Urea Nitrogen 32H, Creatinine 1.97H, Sodium Level 143, Potassium Level 3.7, Chloride Level 112H, Carbon Dioxide Level 23, Calcium Level 8.1L, Glomerular Filtration Rate 34.0L CBC/BMP Laboratory Tests 12/02/16 15:26 Red Blood Count 3.52 L, Mean Corpuscular Volume 82.3, Mean Corpuscular Hemoglobin 27.3, Mean Corpuscular Hemoglobin Concent 33.1, Red Cell Distribution Width 14.8 H 12/02/16 20:47 Red Blood Count 3.42 L, Mean Corpuscular Volume 82.6, Mean Corpuscular Hemoglobin 27.2, Mean Corpuscular Hemoglobin Concent 33.0, Red Cell Distribution Width 13.9 12/03/16 05:00 Red Blood Count 3.53 L, Mean Corpuscular Volume 80.8, Mean Corpuscular Hemoglobin 27.3, Mean Corpuscular Hemoglobin Concent 33.8, Red Cell Distribution Width 14.9 H, Calcium Level 8.1 L Medications Scheduled Aspirin (Ecotrin Low Strength) 81 Mg Tab 81 MG PO DAILY Atorvastatin Calcium (Atorvastatin Calcium) 80 Mg Tab 80 MG PO QHS Losartan Potassium (Losartan Potassium) 25 Mg Tab 25 MG PO DAILY Metoprolol Tartrate (Metoprolol Tartrate) 25 Mg Tab 25 MG PO BID Omeprazole (Omeprazole) 20 Mg Cap 20 MG PO BID Sucralfate (Carafate) 1 Gm Tab 1 GM PO Q6H Allergies Coded Allergies: No Known Allergies (Unverified , 08/26/15) MARIO LO MD Dec 03, 2016 12:28
--- NOTE | 2016-12-03 13:20 | EDDOCDS ---
Physician Documentation [facility] Name: Jose Hamm Age: 56 yrs Sex: Female : 1960 Arrival Date: 12/01/2016 Time: 08:21 Bed 15 Private MD: Clive Casarez MD Disposition: 12/01/16 10:27 Hospitalization ordered by Miguel Wahl for Inpatient Admission. Preliminary diagnosis is Hematemesis. - Bed requested for PCU. - Status is Inpatient Admission. js13 - Condition is Stable. - Problem is new. - Symptoms have improved. Historical: - Allergies: no known allergies; - Home Meds: 1. atorvastatin 80 mg oral tab 1 tab once daily 2. losartan-hydrochlorothiazide 100-25 mg oral tab 1 tab once daily 3. Eliquis 5 mg oral tab 1 tab 2 times per day 4. metoprolol tartrate 25 mg Oral tab 2 times per day - PMHx: Hypercholesterolemia; Hypertension; kidney failure stage 3; Stroke; water on the brain; a fib; - PSHx: Cholecystectomy; - Social history: Smoking status: Patient states former smoker of tobacco. No barriers to communication noted, The patient speaks fluent Sammarinese, Speaks appropriately for age. - Family history: Not pertinent. - : The pt / caregiver states he / she is on anticoagulants: Eliquis Home medication list is obtained from the patient. - Exposure Risk Screening:: None identified. 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 (152.40 cm) (R); 09:01 BP 120 / 81 (auto/); 13 09:01 Pulse 100 MON; Resp 16; Pulse Ox 100% on R/A; 13 09:16 BP 126 / 80 (auto/); 13 09:16 Pulse 90 MON; Resp 16; Pulse Ox 99% on R/A; 13 09:31 BP 117 / 79 (auto/); 13 09:31 Pulse 84 MON; Resp 16; Pulse Ox 100% on R/A; 13 09:46 BP 117 / 79 (auto/); js13 09:46 Pulse 72 MON; Resp 16; Pulse Ox 99% on R/A; js13 10:01 BP 130 / 87 (auto/); js13 10:01 Pulse 82 MON; Resp 16; Pulse Ox 99% on R/A; js13 10:16 BP 131 / 88 (auto/); js13 10:16 Pulse 76 MON; Resp 16; Pulse Ox 99% on R/A; js13 10:31 BP 124 / 90 (auto/); js13 10:31 Pulse 86 MON; Resp 16; Pulse Ox 98% on R/A; js13 10:46 BP 123 / 84 (auto/); js13 10:46 Pulse 78 MON; Resp 16; Pulse Ox 98% on R/A; js13 11:01 BP 126 / 85 (auto/); js13 11:01 Pulse 68 MON; Resp 16; Pulse Ox 99% on R/A; js13 11:16 BP 134 / 94 (auto/); js13 11:16 Pulse 78 MON; Resp 16; Pulse Ox 98% on R/A; js13 11:31 BP 120 / 87 (auto/); js13 11:31 Pulse 76 MON; Resp 16; Pulse Ox 99% on R/A; js13 11:46 BP 117 / 83 (auto/); js13 11:46 Pulse 84 MON; Resp 16; Temp 97.2(O); Pulse Ox 98% on R/A; js13 12:01 BP 119 / 81 (auto/); js13 12:01 Pulse 90 MON; Resp 16; Temp 97.2(O); Pulse Ox 99% on R/A; 13 08:29 Body Mass Index 21.48 (49.90 kg, 152.40 cm) srm MDM: 08:48 Undress patient appropriately for examination ordered. sd1 08:48 NS 0.9% 1000 ml IV at 250 mL/hr continuous ordered. sd1 08:49 pantoprazole 40 mg IV at bolus once ordered. sd1 08:49 Ondansetron 4 mg IVP once ordered. sd1 08:49 Type & Screen Ordered. EDMS 08:49 Amylase Ordered. EDMS 08:49 Basic Metabolic Profile Ordered. EDMS 08:49 CBC with Diff Ordered. EDMS 08:49 Lipase Ordered. EDMS 08:50 Liver Profile Ordered. EDMS 08:50 Prothrombin Time Profile\E\INR Ordered. EDMS 08:50 NOTHING BY MOUTH+DIET ordered. EDMS 08:50 ECG WITH READING ER PHYS+CARDIAG ordered. EDMS 08:52 pantoprazole 8 mg/hr IV at 10 mL/hr continuous over 72 hrs; 40mg (10mL): withdraw 10mL sd1 from 50mL bag of NS then add protonix ordered. 08:53 BED REQUEST+ADM ordered. EDMS 09:00 Financial registration complete. lg 09:05 [facility] Payment Agreement was scanned into [employer] and attached to record. lg 09:29 CBC with Diff Reviewed. sd1 09:41 Basic Metabolic Profile Reviewed. sd1 09:41 Liver Profile Reviewed. sd1 09:41 Prothrombin Time Profile\E\INR Reviewed. sd1 09:41 Amylase Reviewed. sd1 09:41 Lipase Reviewed. sd1 09:55 Type & Screen Reviewed. sd1 10:09 Sucralfate 1 grams PO once ordered. sd1 11:25 Admission / Observation Status ordered. EDMS 11:25 COMPLETE BLOOD COUNT Ordered. EDMS 11:26 COMPLETE BLOOD COUNT Ordered. EDMS 11:26 BASIC METABOLIC PROFILE Ordered. EDMS 11:53 NPO DIET ordered. EDMS 13:25 T-Sheet-- Draft Copy was scanned into [employer] and attached to record. gb 13:25 ECG/EKG was scanned into [employer] and attached to record. gb Administered Medications: 09:20 Drug: NS 0.9% 1000 ml [sodium chloride 0.9 % intravenous solution] Route: IV; Rate: 250 js13 mL/hr; Site: left antecubital; 11:46 Follow up: Rate change 125 mL/hr; Rate change per admission orders. js13 12:07 Follow up: IV Status: Infusion continued upon admit js13 09:20 Drug: Ondansetron 4 mg [ondansetron HCl 2 mg/mL intravenous solution (2 mL)] Route: js13 IVP; Site: left antecubital; 09:23 Drug: pantoprazole 8 mg/hr [pantoprazole 40 mg intravenous solution] Route: IV; Rate: js13 10 mL/hr; Infused Over: 72 hrs; Site: left antecubital; 12:07 Follow up: IV Status: Infusion continued upon admit js13 09:24 Drug: pantoprazole 40 mg [pantoprazole 40 mg intravenous solution] Route: IV; Rate: js13 bolus; Site: left antecubital; 10:20 Drug: Sucralfate 1 grams [sucralfate 1 gram tablet (1 tabs)] Route: PO; js13 Signatures: Dispatcher [employer] EDMS Melodie Schwab MD MD sd1 Lamar Bowers, RN RN [facility] Paula Nolasco, Reg Reg gb Nestor Lynn, Reg Reg lg Olya Lewis RN RN [id number] Terry Mahmood RN RN sa The chart was reviewed and I authenticate all verbal orders and agree with the evaluation and treatment provided.Corrections: (The following items were deleted from the chart) 09:01 08:48 Misc. Nursing Order ordered. sd1 js13 10:42 08:48 Orthostatic VS ordered. sd1 js13 11:29 11:25 TYPE & SCREEN ordered. EDMS EDMS 11:53 11:25 NPO DIET ordered. EDMS EDMS Attachments: 09:05 [facility] lg 13:25 T-Sheet-- Draft Copy gb 13:25 ECG/EKG gb Chart Complete MTDD
--- NOTE | 2016-12-03 13:20 | EDDOCDS ---
Nurse's Notes [facility] Name: Jose Hamm Age: 56 yrs Sex: Female : 1960 Arrival Date: 12/01/2016 Time: 08:21 Bed 15 Private MD: Clive Casarez MD Diagnosis: Hematemesis Presentation: 12/01 08:25 Presenting complaint: Patient states: started vomiting at 0345. reddish black in color- srm daughter states it looked like jello. no ABD pain or diarrhea. after vomiting she felt tired but " relieved". vomiting about 5-6 times this am. Adult Sepsis Screening: The patient does not have new or worsening altered mentation. Patient's respiratory rate is less than 22. Systolic blood pressure is greater than 100. Patient has a qSOFA score of 0- Negative Sepsis Screen. Transition of care: patient was not received from another setting of care. 08:25 Acuity: ERIC Level 3 srm 08:25 Method Of Arrival: Walkin/Carried/Asstd [facility] 08:29 Suicide/Homicide risk assessment- the patient denies having any suicidal and/or srm homicidal ideations and does not present with any other emotional, behavioral or mental health complaints. Status: The patient is a dependent. Triage Assessment: 08:29 General: Appears in no apparent distress, Behavior is appropriate for age, cooperative. srm Pain: Denies pain. HIV screening NA for this visit Offered previously. GOLD AND SILVER ASSAYER: 08:29 LMP N/A - Post-menopause srm Historical: - Allergies: no known allergies; - Home Meds: 1. atorvastatin 80 mg oral tab 1 tab once daily 2. losartan-hydrochlorothiazide 100-25 mg oral tab 1 tab once daily 3. Eliquis 5 mg oral tab 1 tab 2 times per day 4. metoprolol tartrate 25 mg Oral tab 2 times per day - PMHx: Hypercholesterolemia; Hypertension; kidney failure stage 3; Stroke; water on the brain; a fib; - PSHx: Cholecystectomy; - Social history: Smoking status: Patient states former smoker of tobacco. No barriers to communication noted, The patient speaks fluent Ethiopian, Speaks appropriately for age. - Family history: Not pertinent. - : The pt / caregiver states he / she is on anticoagulants: Eliquis Home medication list is obtained from the patient. - Exposure Risk Screening:: None identified. Screenin:43 Screening information is obtained from the patient. Fall risk: No risks identified. js13 Assistance ADL's: requires no assistance with activities of daily living. Abuse/DV Screen: The patient / caregiver reports he/she is: not in a situation that causes fear, pain or injury. Nutritional screening: No deficits noted. Advance Directives: There is no active DNR order. home support is adequate. Assessment: 09:24 General: Appears in no apparent distress, Behavior is appropriate for age, cooperative. js13 Pain: Denies pain. Neurological: Level of Consciousness is awake, alert. Cardiovascular: Rhythm is sinus rhythm Chest pain is denied. Respiratory: Airway is patent Respiratory effort is even, unlabored, Respiratory pattern is regular, symmetrical, Breath sounds are clear. GI: Abdomen is non- distended Bowel sounds present X 4 quads. Abd is soft and non tender Reports vomiting. Derm: Skin is normal. 10:23 General: Appears in no apparent distress, Behavior is appropriate for age, cooperative. js13 Pain: Denies pain. Neurological: Level of Consciousness is awake, alert. Cardiovascular: Rhythm is sinus rhythm Chest pain is denied. Respiratory: Airway is patent Respiratory effort is even, unlabored, Respiratory pattern is regular, symmetrical. GI: Abdomen is non- distended Bowel sounds present X 4 quads. Abd is soft and non tender X 4 quads. Derm: Skin is normal. 11:27 Adult Sepsis Screening: The patient does not have new or worsening altered mentation. js13 Patient's respiratory rate is less than 22. Systolic blood pressure is greater than 100. Patient has a qSOFA score of 0- Negative Sepsis Screen. General: Appears in no apparent distress, Behavior is appropriate for age, cooperative. Pain: Denies pain. Neurological: Level of Consciousness is awake, alert. Cardiovascular: Rhythm is sinus rhythm Chest pain is denied. Respiratory: Airway is patent Respiratory effort is even, unlabored, Respiratory pattern is regular, symmetrical. GI: Abdomen is non- distended Bowel sounds present X 4 quads. Abd is soft and non tender. Derm: Skin is normal. 12:06 General: Appears in no apparent distress, comfortable, Behavior is appropriate for age, js13 cooperative. Pain: Denies pain. Neurological: Level of Consciousness is awake, alert. Cardiovascular: Rhythm is sinus rhythm Chest pain is denied. Respiratory: Airway is patent Respiratory effort is even, unlabored, Respiratory pattern is regular, symmetrical. GI: Abdomen is non- distended Bowel sounds present X 4 quads. Abd is soft and non tender. Derm: Skin is normal. Vital Signs: 08:29 BP 122 / 55; Pulse 76; Resp 18; Temp 96(O); Pulse Ox 98% on R/A; Weight 49.9 kg (R); srm Height 5 ft. (152.40 cm) (R); 09:01 BP 120 / 81 (auto/); js13 09:01 Pulse 100 MON; Resp 16; Pulse Ox 100% on R/A; js13 09:16 BP 126 / 80 (auto/); js13 09:16 Pulse 90 MON; Resp 16; Pulse Ox 99% on R/A; js13 09:31 BP 117 / 79 (auto/); js13 09:31 Pulse 84 MON; Resp 16; Pulse Ox 100% on R/A; js13 09:46 BP 117 / 79 (auto/); js13 09:46 Pulse 72 MON; Resp 16; Pulse Ox 99% on R/A; js13 10:01 BP 130 / 87 (auto/); js13 10:01 Pulse 82 MON; Resp 16; Pulse Ox 99% on R/A; js13 10:16 BP 131 / 88 (auto/); js13 10:16 Pulse 76 MON; Resp 16; Pulse Ox 99% on R/A; js13 10:31 BP 124 / 90 (auto/); js13 10:31 Pulse 86 MON; Resp 16; Pulse Ox 98% on R/A; js13 10:46 BP 123 / 84 (auto/); js13 10:46 Pulse 78 MON; Resp 16; Pulse Ox 98% on R/A; js13 11:01 BP 126 / 85 (auto/); js13 11:01 Pulse 68 MON; Resp 16; Pulse Ox 99% on R/A; js13 11:16 BP 134 / 94 (auto/); js13 11:16 Pulse 78 MON; Resp 16; Pulse Ox 98% on R/A; js13 11:31 BP 120 / 87 (auto/); js13 11:31 Pulse 76 MON; Resp 16; Pulse Ox 99% on R/A; js13 11:46 BP 117 / 83 (auto/); js13 11:46 Pulse 84 MON; Resp 16; Temp 97.2(O); Pulse Ox 98% on R/A; js13 12:01 BP 119 / 81 (auto/); js13 12:01 Pulse 90 MON; Resp 16; Temp 97.2(O); Pulse Ox 99% on R/A; js13 08:29 Body Mass Index 21.48 (49.90 kg, 152.40 cm) [facility] Vitals: 08:29 Log In Time: December 01, 2016 at 08:17. [facility] ED Course: 08:23 Patient visited by Genie Lake. mm15 08:23 Clive Casarez is Private Physician. mm15 08:23 Patient moved to Waiting mm15 08:27 Triage Initiated [facility] 08:32 Patient moved to 15 [facility] 08:37 Melodie Schwab MD is Attending Physician. sd1 08:41 Patient visited by Melodie Schawb MD. sd1 08:43 The patient / caregiver is instructed regarding the plan of care and ED course. js13 09:01 Inserted saline lock: 18 gauge in left antecubital area and blood collected. The js13 patient tolerated the procedure well. No procedures done that require assistance. Labs drawn. (by ED staff). Sent per order to lab. 09:02 Amylase Sent. js13 09:02 Basic Metabolic Profile Sent. js13 09:02 CBC with Diff Sent. js13 09:02 Lipase Sent. js13 09:02 Liver Profile Sent. js13 09:02 Prothrombin Time Profile\\E\\INR Sent. js13 09:03 Patient visited by Rosy Swift. nb2 09:03 EKG done. (by ED staff). Reviewed by Melodie Schwab MD. nb2 09:05 [facility] [place] Payment Agreement was scanned into [employer] and attached to record. lg 09:25 Patient visited by Olya Lewis RN. js13 10:25 Patient visited by Olya Lewis RN. js13 10:27 Miguel Wahl is Hospitalizing Provider. sd1 11:28 Patient visited by Olya Lewis RN. js13 13:25 T-Sheet-- Draft Copy was scanned into [employer] and attached to record. gb 13:25 ECG/EKG was scanned into [employer] and attached to record. gb Administered Medications: 09:20 Drug: NS 0.9% 1000 ml [sodium chloride 0.9 % intravenous solution] Route: IV; Rate: 250 js13 mL/hr; Site: left antecubital; 11:46 Follow up: Rate change 125 mL/hr; Rate change per admission orders. js13 12:07 Follow up: IV Status: Infusion continued upon admit js13 09:20 Drug: Ondansetron 4 mg [ondansetron HCl 2 mg/mL intravenous solution (2 mL)] Route: js13 IVP; Site: left antecubital; 09:23 Drug: pantoprazole 8 mg/hr [pantoprazole 40 mg intravenous solution] Route: IV; Rate: js13 10 mL/hr; Infused Over: 72 hrs; Site: left antecubital; 12:07 Follow up: IV Status: Infusion continued upon admit js13 09:24 Drug: pantoprazole 40 mg [pantoprazole 40 mg intravenous solution] Route: IV; Rate: js13 bolus; Site: left antecubital; 10:20 Drug: Sucralfate 1 grams [sucralfate 1 gram tablet (1 tabs)] Route: PO; js13 Intake: Order Results: Lab Order: Amylase; SPEC'M 12/01/16 09:00 Test: AMYLASE; Value: 99; Range: 25-115; Units: U/L; Status: F Lab Order: Basic Metabolic Profile; SPEC'M 12/01/16 09:00 Test: GLUCOSE, FASTING; Value: 93; Range: 70-105; Units: MG/DL; Status: F Test: BLOOD UREA NITROGEN; Value: 63; Range: 7-18; Abnormal: Above high normal; Units: MG/DL; Status: F Test: CREATININE FOR GFR; Value: 1.94; Range: 0.55-1.02; Abnormal: Above high normal; Units: MG/DL; Status: F Test: GLOMERULAR FILTRATION RATE; Value: 34.6; Range: >51; Abnormal: Below low normal; Status: F Test: SODIUM LEVEL; Value: 147; Range: 136-145; Abnormal: Above high normal; Units: MEQ/L; Status: F Test: POTASSIUM SERUM; Value: 4.5; Range: 3.5-5.1; Units: MEQ/L; Status: F Test: CHLORIDE LEVEL; Value: 110; Range: 98-107; Abnormal: Above high normal; Units: MEQ/L; Status: F Test: CARBON DIOXIDE LEVEL; Value: 25; Range: 21-32; Units: MEQ/L; Status: F Test: ANION GAP; Value: 12; Range: 8-16; Units: MEQ/L; Status: F Test: CALCIUM LEVEL; Value: 8.6; Range: 8.5-10.1; Units: MG/DL; Status: F Test Note: ; Units are mL/min/1.73 m2 Chronic Kidney Disease Staging per NKF: Stage I & II GFR >=60 Normal to Mildly Decreased Stage III GFR 30-59 Moderately Decreased Stage IV GFR 15-29 Severely Decreased Stage V GFR <15 Very Little GFR Left ESRD GFR <15 on DIRECTOR OF SCIENTIFIC RESEARCH Lab Order: CBC with Diff; SPEC'M 12/01/16 09:00 Test: WHITE BLOOD COUNT; Value: 10.7; Range: 4.0-10.0; Abnormal: Above high normal; Units: K/mm3; Status: F Test: RED BLOOD COUNT; Value: 3.76; Range: 4.00-5.40; Abnormal: Below low normal; Units: M/mm3; Status: F Test: HEMOGLOBIN; Value: 9.7; Range: 12.0-16.0; Abnormal: Below low normal; Units: g/dl; Status: F Test: HEMATOCRIT; Value: 31.0; Range: 36.0-47.0; Abnormal: Below low normal; Units: %; Status: F Test: MEAN CORPUSCULAR VOLUME; Value: 82.3; Range: 80.0-96.0; Units: fl; Status: F Test: MEAN CORPUSCULAR HEMOGLOBIN; Value: 25.8; Range: 27.0-33.0; Abnormal: Below low normal; Units: pg; Status: F Test: MEAN CORPUSCULAR HGB CONC; Value: 31.3; Range: 32.0-36.5; Abnormal: Below low normal; Units: g/dl; Status: F Test: RED CELL DISTRIBUTION WIDTH; Value: 13.3; Range: 11.5-14.5; Units: %; Status: F Test: PLATELET COUNT, AUTOMATED; Value: 213; Range: 150-450; Units: k/mm3; Status: F Test: NEUTROPHILS %; Value: 73.4; Range: 36.0-66.0; Abnormal: Above high normal; Units: %; Status: F Test: LYMPH %; Value: 19.3; Range: 24.0-44.0; Abnormal: Below low normal; Units: %; Status: F Test: MONO %; Value: 3.5; Range: 0.0-5.0; Units: %; Status: F Test: EOS %; Value: 1.8; Range: 0.0-3.0; Units: %; Status: F Test: BASO %; Value: 0.5; Range: 0.0-1.0; Units: %; Status: F Test: LARGE UNSTAINED CELL %; Value: 1.5; Range: 0.0-4.0; Units: %; Status: F Test: NEUTROPHILS #; Value: 7.8; Range: 1.8-7.7; Abnormal: Above high normal; Units: K/mm3; Status: F Test: LYMPH #; Value: 2.1; Range: 1.5-4.5; Units: K/mm3; Status: F Test: MONO #; Value: 0.4; Range: 0.0-0.8; Units: K/mm3; Status: F Test: EOS #; Value: 0.2; Range: 0.0-0.50; Units: K/mm3; Status: F Test: BASO #; Value: 0.0; Range: 0.0-0.2; Units: K/mm3; Status: F Test: LARGE UNSTAINED CELL #; Value: 0.2; Range: 0.0-0.4; Units: K/mm3; Status: F Lab Order: Lipase; SPEC'M 12/01/16 09:00 Test: LIPASE; Value: 249; Range: 73-393; Units: U/L; Status: F Lab Order: Liver Profile; SPEC'M 12/01/16 09:00 Test: AST/SGOT; Value: 28; Range: 15-37; Units: U/L; Status: F Test: ALT/SGPT; Value: 28; Range: 12-78; Units: U/L; Status: F Test: ALKALINE PHOSPHATASE; Value: 111; Range: 45-117; Units: U/L; Status: F Test: BILIRUBIN,TOTAL; Value: 0.2; Range: 0.2-1.0; Units: MG/DL; Status: F Test: BILIRUBIN,DIRECT; Value: < 0.1; Range: 0.0-0.2; Units: MG/DL; Status: F Test: TOTAL PROTEIN; Value: 7.5; Range: 6.4-8.2; Units: GM/DL; Status: F Test: ALBUMIN; Value: 3.4; Range: 3.2-5.2; Units: GM/DL; Status: F Test: ALBUMIN/GLOBULIN RATIO; Value: 0.83; Range: 1.00-1.93; Abnormal: Below low normal; Status: F Lab Order: Prothrombin Time Profile\\E\\INR; SPEC'M 12/01/16 09:00 Test: PROTHROMBIN TIME; Value: 17.4; Range: 12.3-14.5; Abnormal: Above high normal; Units: SECONDS; Status: F Test: INR; Value: 1.41; Status: F Test Note: ; THERAPUTIC HUMAN INR VALUES INDICATIONS NORMAL RANGES PROPHYLAXIS/TREATMENT OF: VENOUS THROMBOSIS 2.0-3.0 PULMONARY EMBOLISM 2.0-3.0 PREVENTION OF SYSTEMIC EMBOLISM FROM: TISSUE HEART VALVES 2.0-3.0 ACUTE MYOCARDIAL INFARCTION 2.0-3.0 VALVULAR HEART DISEASE 2.0-3.0 ATRIAL FIBRILLATION 2.0-3.0 MECHANICAL VALVES(HIGH RISK) 2.5-3.5 RECURRENT MYOCARDIAL INFARCTION 2.5-3.5 Lab Order: Type & Screen; SPEC'M 12/01/16 09:00 Test: BLOOD TYPE; Value: O POS; Status: F Test: AB SCREEN (INDIRECT CHERI)GEL; Value: NEGATIVE; Status: F Outcome: 10:27 Decision to Hospitalize by Provider. sd1 11:46 Discharge Assessment: Patient awake, alert and oriented x 3. No cognitive and/or js13 functional deficits noted. Patient verbalized understanding of disposition instructions. patient administered narcotics - no. Condition: stable. No special radiology studies were completed. Admission hand-off: Report Faxed. Property :Personal belongings accompany Pt. 12:05 The following High Risk Discharge criteria are identified: None. Admitted to PCU js13 accompanied by nurse, accompanied by tech, via stretcher, on monitor, with chart. 12:19 Patient left the ED. js13 Signatures: Melodie Schwab MD MD sd1 Lamar Bowers, RN RN srm Paula Nolasco, Reg Reg gb Nestor Lynn, Reg Reg lg Olya Lewis RN RN js13 Genie Lake mm15 Rosy Swift2 Corrections: (The following items were deleted from the chart) 11:29 11:26 TYPE & SCREEN sent. js13 EDMS Chart Complete MTDD
--- NOTE | 2016-12-03 13:20 | EDDOCDS ---
Physician Documentation [facility] Name: Jose Hamm Age: 56 yrs Sex: Female : 1960 Arrival Date: 12/01/2016 Time: 08:21 Bed 15 Private MD: Clive Casarez MD Disposition: 12/01/16 10:27 Hospitalization ordered by Miguel Wahl for Inpatient Admission. Preliminary diagnosis is Hematemesis. - Bed requested for PCU. - Status is Inpatient Admission. js13 - Condition is Stable. - Problem is new. - Symptoms have improved. Historical: - Allergies: no known allergies; - Home Meds: 1. atorvastatin 80 mg oral tab 1 tab once daily 2. losartan-hydrochlorothiazide 100-25 mg oral tab 1 tab once daily 3. Eliquis 5 mg oral tab 1 tab 2 times per day 4. metoprolol tartrate 25 mg Oral tab 2 times per day - PMHx: Hypercholesterolemia; Hypertension; kidney failure stage 3; Stroke; water on the brain; a fib; - PSHx: Cholecystectomy; - Social history: Smoking status: Patient states former smoker of tobacco. No barriers to communication noted, The patient speaks fluent Gibraltarian, Speaks appropriately for age. - Family history: Not pertinent. - : The pt / caregiver states he / she is on anticoagulants: Eliquis Home medication list is obtained from the patient. - Exposure Risk Screening:: None identified. BLADE CHANGER: 12/01 08:29 LMP N/A - Post-menopause srm Vital Signs: 08:29 BP 122 / 55; Pulse 76; Resp 18; Temp 96(O); Pulse Ox 98% on R/A; Weight 49.9 kg / srm 110.01 lbs (R); Height 5 ft. (152.40 cm) (R); 09:01 BP 120 / 81 (auto/); 13 09:01 Pulse 100 MON; Resp 16; Pulse Ox 100% on R/A; 13 09:16 BP 126 / 80 (auto/); 13 09:16 Pulse 90 MON; Resp 16; Pulse Ox 99% on R/A; 13 09:31 BP 117 / 79 (auto/); 13 09:31 Pulse 84 MON; Resp 16; Pulse Ox 100% on R/A; 13 09:46 BP 117 / 79 (auto/); js13 09:46 Pulse 72 MON; Resp 16; Pulse Ox 99% on R/A; js13 10:01 BP 130 / 87 (auto/); js13 10:01 Pulse 82 MON; Resp 16; Pulse Ox 99% on R/A; js13 10:16 BP 131 / 88 (auto/); js13 10:16 Pulse 76 MON; Resp 16; Pulse Ox 99% on R/A; js13 10:31 BP 124 / 90 (auto/); js13 10:31 Pulse 86 MON; Resp 16; Pulse Ox 98% on R/A; js13 10:46 BP 123 / 84 (auto/); js13 10:46 Pulse 78 MON; Resp 16; Pulse Ox 98% on R/A; js13 11:01 BP 126 / 85 (auto/); js13 11:01 Pulse 68 MON; Resp 16; Pulse Ox 99% on R/A; js13 11:16 BP 134 / 94 (auto/); js13 11:16 Pulse 78 MON; Resp 16; Pulse Ox 98% on R/A; js13 11:31 BP 120 / 87 (auto/); js13 11:31 Pulse 76 MON; Resp 16; Pulse Ox 99% on R/A; js13 11:46 BP 117 / 83 (auto/); js13 11:46 Pulse 84 MON; Resp 16; Temp 97.2(O); Pulse Ox 98% on R/A; js13 12:01 BP 119 / 81 (auto/); js13 12:01 Pulse 90 MON; Resp 16; Temp 97.2(O); Pulse Ox 99% on R/A; 13 08:29 Body Mass Index 21.48 (49.90 kg, 152.40 cm) srm MDM: 08:48 Undress patient appropriately for examination ordered. sd1 08:48 NS 0.9% 1000 ml IV at 250 mL/hr continuous ordered. sd1 08:49 pantoprazole 40 mg IV at bolus once ordered. sd1 08:49 Ondansetron 4 mg IVP once ordered. sd1 08:49 Type & Screen Ordered. EDMS 08:49 Amylase Ordered. EDMS 08:49 Basic Metabolic Profile Ordered. EDMS 08:49 CBC with Diff Ordered. EDMS 08:49 Lipase Ordered. EDMS 08:50 Liver Profile Ordered. EDMS 08:50 Prothrombin Time Profile\E\INR Ordered. EDMS 08:50 NOTHING BY MOUTH+DIET ordered. EDMS 08:50 ECG WITH READING ER PHYS+CARDIAG ordered. EDMS 08:52 pantoprazole 8 mg/hr IV at 10 mL/hr continuous over 72 hrs; 40mg (10mL): withdraw 10mL sd1 from 50mL bag of NS then add protonix ordered. 08:53 BED REQUEST+ADM ordered. EDMS 09:00 Financial registration complete. lg 09:05 [facility] Payment Agreement was scanned into [employer] and attached to record. lg 09:29 CBC with Diff Reviewed. sd1 09:41 Basic Metabolic Profile Reviewed. sd1 09:41 Liver Profile Reviewed. sd1 09:41 Prothrombin Time Profile\E\INR Reviewed. sd1 09:41 Amylase Reviewed. sd1 09:41 Lipase Reviewed. sd1 09:55 Type & Screen Reviewed. sd1 10:09 Sucralfate 1 grams PO once ordered. sd1 11:25 Admission / Observation Status ordered. EDMS 11:25 COMPLETE BLOOD COUNT Ordered. EDMS 11:26 COMPLETE BLOOD COUNT Ordered. EDMS 11:26 BASIC METABOLIC PROFILE Ordered. EDMS 11:53 NPO DIET ordered. EDMS 13:25 T-Sheet-- Draft Copy was scanned into [employer] and attached to record. gb 13:25 ECG/EKG was scanned into [employer] and attached to record. gb Administered Medications: 09:20 Drug: NS 0.9% 1000 ml [sodium chloride 0.9 % intravenous solution] Route: IV; Rate: 250 js13 mL/hr; Site: left antecubital; 11:46 Follow up: Rate change 125 mL/hr; Rate change per admission orders. js13 12:07 Follow up: IV Status: Infusion continued upon admit js13 09:20 Drug: Ondansetron 4 mg [ondansetron HCl 2 mg/mL intravenous solution (2 mL)] Route: js13 IVP; Site: left antecubital; 09:23 Drug: pantoprazole 8 mg/hr [pantoprazole 40 mg intravenous solution] Route: IV; Rate: js13 10 mL/hr; Infused Over: 72 hrs; Site: left antecubital; 12:07 Follow up: IV Status: Infusion continued upon admit js13 09:24 Drug: pantoprazole 40 mg [pantoprazole 40 mg intravenous solution] Route: IV; Rate: js13 bolus; Site: left antecubital; 10:20 Drug: Sucralfate 1 grams [sucralfate 1 gram tablet (1 tabs)] Route: PO; js13 Signatures: Dispatcher [employer] EDMS Melodie Schwab MD MD sd1 Lamar Bowers, RN RN [facility] Paula Nolasco, Reg Reg gb Nestor Lynn, Reg Reg lg Olya Lewis RN RN js13 Terry Mahmood RN RN sa The chart was reviewed and I authenticate all verbal orders and agree with the evaluation and treatment provided.Corrections: (The following items were deleted from the chart) 09:01 08:48 Misc. Nursing Order ordered. sd1 js13 10:42 08:48 Orthostatic VS ordered. sd1 js13 11:29 11:25 TYPE & SCREEN ordered. EDMS EDMS 11:53 11:25 NPO DIET ordered. EDMS EDMS Attachments: 09:05 [facility] Payment Agreement lg 13:25 T-Sheet-- Draft Copy gb 13:25 ECG/EKG gb Chart Complete MTDD
--- NOTE | 2016-12-04 08:31 | IPN ---
DATE: 12/02/2016 SUBJECTIVE: This is a 56-year-old female who was see and examined at bedside. Overnight, her hemoglobin dropped to 7.1 and received 2 units of blood transfusion. Tolerated transfusion well. No further episodes of hematemesis since admission. No chest pain, shortness of breath, nausea, vomiting, fevers, chills, headaches, palpitations. OBJECTIVE: VITAL SIGNS: Blood pressure early this morning was 123/67, orthostatics were negative. Heart rate 68, temperature 97, pulse oximetry 99% on room air. Intake and output in the last 24 hours: 1800 and 1000. GENERAL: The patient is lying in bed comfortable. No acute distress. Alert, awake, and oriented times three. Pleasant, cooperative. HEENT: Normocephalic, atraumatic. Moist oral mucosa. Edentulous. NECK: Supple. Trachea midline. No jugular venous distention (JVD). CHEST: Symmetric chest rise. No accessory muscle use. Breath sounds were clear to auscultation bilaterally. HEART: Regular rate and rhythm. S1, S2 present. ABDOMEN: Soft, nontender, nondistended. Bowel sounds present. No guarding. No rebound. EXTREMITIES: No pedal edema. Pedal pulses present bilaterally. LABORATORY DATA: WBC 9, hemoglobin 9.8, hematocrit 30, platelets 151. Sodium 147, potassium 4.4, chloride 118, carbon dioxide 20, BUN 46, creatinine 2.0, glucose 72, calcium 7.7. WBC 9, hemoglobin 9.8, hematocrit 29.9, and platelets 151. Sodium 147, potassium 4.4, chloride 118, carbon dioxide 20, BUN 46, creatinine 2.0, increased from yesterday at 1.8. Calcium is 7.7, glucose 72. IMPRESSION/PLAN: Ms. Hamm is a 56-year-old female recently diagnosed with multiple CVA and was on aspirin and Plavix, later switched to Eliquis, who presented with hematemesis. 1. Upper gastrointestinal bleed. Overnight, her hemoglobin did decrease and required 2 units of packed red blood cells, which she responded appropriately with an increase in hemoglobin. No further episodes of hematemesis since admission. Has been evaluated by Dr. Burnett. At this time, no definitive plan for inpatient esophagogastroduodenoscopy (EGD). The patient's diet was advanced this morning. 2. Hypernatremia. Was started on D5W this morning. This is likely secondary to normal saline that was administered when she was first admitted. 3. Acute kidney injury on chronic kidney disease. The patient, at baseline, has chronic kidney disease stage III. There is some mild worsening of her renal function today. She is on intravenous fluids, as mentioned above, D5W. Continue holding ARB for reasons mentioned above. 4. Prior history of CVA. Continue holding medications, including Eliquis. We will restart her Lipitor today. The patient has never had a documented atrial fibrillation event. She will require further workup, including monitor to capture for any possible atrial fibrillation. Case discussed with Dr. Burnett. In the meantime, as she does not have confirmed atrial fibrillation, she will likely be discharged home with aspirin whenever she is amenable to be going home. 5. Hyperlipidemia. Restart her Lipitor today. 6. Deep vein thrombosis (DVT) prophylaxis. Sequential compression device (SCD) and TEDs. No pharmacologic intervention secondary to gastrointestinal bleed. My preceptor for this patient encounter was Dr. Wahl. The preceptor was physically present in the building during the encounter and was fully available. As needed, all aspects of the patient interview, examination, medical decision making process, and medical care plan development were reviewed and approved by the preceptor. The preceptor is aware and concurs with the plan as stated in the body of this note and will attest to such by his/her cosignature. GOPAL
== END 2016-12-03 15:07 | disposition home or self-care (01) | DRG 253 ==
LOC: M ED 08:21 → M ED INP 11:19 → M PCU 12:14
PROVIDERS: ADMIT Internal Medicine; ATTEND Internal Medicine
PROC: 30233N1 Transfusion of Nonautologous Red Blood Cells into Peripheral Vein, Percutaneous Approach (ICD-10-PCS; principal; 2016-12-02)
DX: K92.0 Hematemesis (principal); N18.4 Chronic kidney disease, stage 4 (severe); I12.9 Hypertensive chronic kidney disease with stage 1 through stage 4 chronic kidney disease, or unspecified chronic kidney disease; Z86.73 Personal history of transient ischemic attack (TIA), and cerebral infarction without residual deficits; Z79.899 Other long term (current) drug therapy; Z80.1 Family history of malignant neoplasm of trachea, bronchus and lung; Z80.3 Family history of malignant neoplasm of breast; Z87.891 Personal history of nicotine dependence; N17.9 Acute kidney failure, unspecified; E78.5 Hyperlipidemia, unspecified; I48.91 Unspecified atrial fibrillation; E87.0 Hyperosmolality and hypernatremia

== ENCOUNTER → 2017-07-24 | Outpatient (REF) | payer MEDICARE, OTHER, SELFPAY ==
[~2017-07-24] MED LIST changes: +AFRI0.052; -ATOR1TAB18 PO; +ATOR80TA59 PO; +ECOT81TA5 PO; +ELIQ5TAB PO; +GUAISYP5 PO; -LOSA100T37 PO; +LOSA100T5 PO; +LOSA25TA8 PO; +METO25TA4 PO; +OMEP20CA3 PO; +PERC5TAB12 PO; -PERC5TAB6 PO; +SUCR1TA PO
[2017-07-24 14:41] LABS: PERCENT SATURATION 22.7 % (13.2-45.0)
== END ==
LOC: M LAB REF 14:03
PROVIDERS: ATTEND Internal Medicine Nephrology
DX: N18.3 Chronic kidney disease, stage 3 (moderate) (principal); D63.1 Anemia in chronic kidney disease

== ENCOUNTER → 2017-07-25 | Outpatient (CLI) | payer MEDICARE, OTHER, SELFPAY ==
--- NOTE | 2017-07-25 11:25 | REP ---
BILATERAL SCREENING DIGITAL MAMMOGRAM: Comparison studies are the screening bilateral mammogram dated 07/27/2016 and the right breast diagnostic mammogram dated 09/24/2016 and the right breast ultrasound dated 08/15/2016. There is moderately dense heterogeneous breast parenchyma, unchanged. On the comparison study there was a 5 mm nodule laterally in the right breast. On the diagnostic mammogram the nodule was sharply circumscribed and by ultrasound had characteristics compatible with an intramammary lymph node. On the study today this nodule is again sharply circumscribed and unchanged in size, compatible with intramammary lymph node. There has been no interval development of masses, areas of structural distortion or clusters of microcalcifications typical of malignancy. IMPRESSION: There is no evidence of malignancy. BIRADS category 2 benign findings. BI-RADS/ACR category 2 mammogram. Benign finding(s). Routine annual screening mammography (for women over age 40). The patient should have a repeat mammogram in 1 year. This mammogram was interpreted with the aid of an FDA-approved computer-aided detection system. A. Negative x-ray reports should not delay biopsy if a dominant or clinically suspicious mass is present. B. Four to eight percent of cancers are not identified by x-ray. C. Adenosis and dense breasts may obscure an underlying neoplasm. Patient letter M1. Unreviewed
== END ==
LOC: M RAD 09:50
PROVIDERS: ATTEND Physician Assistant Medical
DX: Z12.31 Encounter for screening mammogram for malignant neoplasm of breast (principal)

== ENCOUNTER 2017-08-01 17:36 | Emergency (ER) | payer OTHER, SELFPAY ==
[~2017-08-01] VITALS: Ht 152.4 cm; Wt 64.1 kg
[~2017-08-01 17:36] MED LIST changes: -AFRI0.052; -GUAISYP5 PO
[2017-08-01 17:37] VITALS: BP 145/90
[2017-08-01] MEDS ORDERED: AMLO5TAB2 PO (17:55)
[2017-08-01] MEDS ORDERED: GUAISYP5 PO (18:29)
[2017-08-01] MEDS ORDERED: AFRI0.052 (18:29)
== END 2017-08-01 18:40 | disposition home or self-care (01) ==
LOC: M ED 17:36
DX: J06.9 Acute upper respiratory infection, unspecified (principal); B34.9 Viral infection, unspecified; N18.3 Chronic kidney disease, stage 3 (moderate); Z79.899 Other long term (current) drug therapy; Z79.82 Long term (current) use of aspirin; Z87.891 Personal history of nicotine dependence

== ENCOUNTER → 2018-03-28 | Outpatient (CLI) | payer MEDICARE | LOC: M LRY 10:24 | DX: M25.511 Pain in right shoulder (principal); M89.8X1 Other specified disorders of bone, shoulder | CPT/HCPCS: 73030; 96372 ==

== ENCOUNTER → 2018-04-15 | Outpatient (REF) | payer MEDICARE ==
[2018-04-18 14:16] LABS: ALUMINUM LEVEL 4 ug/L (0-9)
== END ==
LOC: M LAB REF 16:49
DX: N18.4 Chronic kidney disease, stage 4 (severe) (principal); D63.1 Anemia in chronic kidney disease
CPT/HCPCS: 82108